=== PATIENT | male | born 1990 | race Caucasian/White ===

== ENCOUNTER 2018-08-26 00:50 | Emergency (ER) | payer OTHER, MEDICAID, SELFPAY ==
[2018-08-26 00:52] VITALS: BP 145/93; PULSE 100; RESP 12; TEMP 36.9; O2SAT 100; BMI 21.1
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
[2018-08-26] MEDS: ONDANSETRON 4 MG ODT PREPACK 1 BOTTLE MISC (01:19)
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
[2018-08-26] MEDS: KETOROLAC 60 MG/2 ML VIAL IM (01:51)
[2018-08-26 01:56] VITALS: BP 128/86; PULSE 89; RESP 16; O2SAT 100
== END 2018-08-26 02:14 | disposition home or self-care (01) ==
PROVIDERS: Emergency Provider Emergency Medicine
DX: S06.0X0A Concussion without loss of consciousness, initial encounter (principal); Y04.8XXA Assault by other bodily force, initial encounter
CPT/HCPCS: 70450; 96372; 99282; 99284; J1885

== ENCOUNTER 2018-09-23 15:10 | Emergency (ER) | payer OTHER, MEDICAID, SELFPAY ==
[2018-09-23] VITALS (14 sets, daily range): BP systolic 119–136; BP diastolic 62–99; PULSE 74–113; RESP 11–18; TEMP 37.2; O2SAT 98–100
[2018-09-23] MEDS: NALOXONE 0.4 MG/ML VIAL IV ×2 (15:27→15:33)
[2018-09-23] MEDS: SODIUM CHLORIDE 0.9% 1,000 ML 1000 ML IV ×2 (15:35→18:44)
[2018-09-23 15:48] LABS: Add Manual Diff / Slide Review NO; Basophils Absolute Auto 0 /uL (0-100); Eosinophils Absolute Auto 100 /uL (0-450); Eosinophils Percent Auto 2.4 % (2-4); Hematocrit 45.6 % (41-53); Hemoglobin 15.2 g/dL (13.5-17.5); Lymphocytes Absolute Auto 1000 /uL (1100-4500); Lymphocytes Percent Auto 22.1 % (25-40); Mean Corpuscular HGB Conc 33.4 % (30-36); Mean Corpuscular Hemoglobin 28.6 PG (26-34); Mean Corpuscular Volume 85.7 fL (80-100); Monocytes Absolute Auto 500 /uL (0-900); Monocytes Percent Auto 10.5 % (3-14); Neutrophils Absolute Auto 3000 /uL (1500-7000); Platelet Count 162 X10^3/uL (150-400); Red Blood Cell Count 5.32 X10^6/uL (4.5-5.9); Red Cell Distribution Width 14.6 % (11.6-14.8); White Blood Cell Count 4.6 X10^3/uL (4.5-11.0)
[2018-09-23 16:02] LABS: Acetaminophen < 10 ug/mL (10-30); Alanine Aminotransferase 41 IU/L (21-72); Albumin 4.7 g/dL (3.5-5.0); Albumin Globulin Ratio 1.5 (1.0-2.8); Alkaline Phosphatase 77 U/L (38-126); Aspartate Aminotransferase 38 IU/L (17-59); Bilirubin Unconjugated 0.8 mg/dL (0.0-1.1); Blood Urea Nitrogen 18 mg/dL (9-20); Calcium 9.8 mg/dL (8.4-10.2); Carbon Dioxide 28 mmol/L (22-32); Chloride 99 mmol/L (98-107); Estimated Glomerular Filt Rate > 60.0 mL/min (>60); Ethanol (ETOH) < 10 mg/dL; Globulin 3.2 g/dL (1.7-4.1); Glucose 83 mg/dL (70-100); Potassium 4.7 mmol/L (3.4-5.1); Sodium 136 mmol/L (137-145); Total Protein 7.9 g/dL (6.3-8.2)
[2018-09-23 16:13] LABS: HEMOLYSIS 68 (0-50); Salicylate < 1.0 mg/dL (<20)
[2018-09-23] MEDS: NALOXONE 1 MG/ML SYRINGE IV (16:31)
--- NOTE | 2018-09-23 16:37 | PC.NURSE ---
after 1mg narcan. no changes.
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
--- NOTE | 2018-09-23 17:55 | PC.NURSE ---
pt reports, unable to get rx for seboxone, pt had relapse, admitting using heroin 10 dollars worth, Iv at 11am today.
[2018-09-23 18:10] LABS: Urine Amphetamines Positive (Negative); Urine Barbiturates Negative (Negative); Urine Cocaine Negative (Negative); Urine MDMA Negative (Negative); Urine Methamphetamines Positive (Negative); Urine Morphine/Opi cutoff 2000 Positive (Negative); Urine Phencyclidine Negative (Negative); Urine Tetrahydrocannabinol Negative (Negative)
[2018-09-23 18:11] LABS: Urine Benzodiazepines Positive (Negative); Urine Methadone Negative (Negative); Urine Oxycodone Positive (Negative); Urine Tricyclic Antidepressant Negative (Negative)
[2018-09-24 03:35] VITALS: BP 117/83; PULSE 88; RESP 20; O2SAT 98
[2018-09-24 06:04] VITALS: BP 122/79; PULSE 76; RESP 18; TEMP 36.6; O2SAT 99
--- NOTE | 2018-09-24 06:07 | PC.NURSE ---
He was give a sandwich,juice and water before he left.he ate it all.
== END 2018-09-24 06:06 | disposition home or self-care (01) ==
PROVIDERS: Emergency Medicine; Emergency Provider Emergency Medicine
DX: F19.10 Other psychoactive substance abuse, uncomplicated (principal); T40.1X4A Poisoning by heroin, undetermined, initial encounter
CPT/HCPCS: 36591; 80053; 80076; 80305; 80320; 80329; 82962; 85025; 96361; 96374; 96375; 99284; 99285; 99291; G0480; J2310

== ENCOUNTER 2019-04-13 05:08 | Emergency (ER) | payer OTHER, MEDICAID, SELFPAY ==
[2019-04-13 05:15] VITALS: BP 156/99; PULSE 102; RESP 16; TEMP 36.8; O2SAT 100; BMI 21.7
--- NOTE | 2019-04-13 05:46 | ED_ITS ---
HPI - Skin/Abscess/Foreign Bdy General Chief complaint: Skin/Abscess/Foreign Body Stated complaint: Left knee redness sores poss spider bite Time Seen by Provider: 04/13/19 05:35 Source: patient Mode of arrival: Ambulatory History of Present Illness HPI narrative: Patient is a 28-year-old male who presents with left leg abscess. He has a history of IVDA he denies injecting in that area. He says it has been there for about 3 days and has progressively gotten more swollen and red and turned to a blackhead today. No fevers or chills. MD complaint: abscess/boil Onset (ago): day(s) (3) Tetanus up to date: yes Location: LLE Severity: mild Relieving factors: none Exacerbating factors: none Context: none Related Data Home Medications Medication Instructions Recorded Confirmed buprenorphine-naloxone [Suboxone] 1 linda SUBLINGUAL #0 07/13/17 Previous Rx's Medication Instructions Recorded triamcinolone acetonide 1 shelia TOPICAL BIDP PRN #30 gm 09/06/17 sulfamethoxazole-trimethoprim 1 tab PO BID 5 Days #10 tab 04/13/19 [Bactrim DS] Allergies Allergy/AdvReac Type Severity Reaction Status Date / Time PAPER TAPE Allergy Unknown RASH Uncoded 09/23/18 15:22 Review of Systems Review of Systems Narrative: GENERAL: Well-appearing, well-nourished and in no acute distress. CARDIOVASCULAR: peripheral pulses in tact, cap refill <2 sec RESPIRATORY: No respiratory distress, speaks in full sentences without difficu lty [ABDOMEN: Soft, nontender, no guarding or rebound] EXTREMITIES: Normal range of motion, no clubbing or edema. Neurovascularly intact NEUROLOGICAL: Cranial nerves II through XII grossly intact. Normal gait and speech. SKIN: See HPI Patient History Medical History Medical History IV drug abuse (Acute) Social History Social History Smoking Status: Current every day smoker substance use type: heroin, amphetamines, IV drugs and methamphetamine tobacco type: cigarettes alcohol intake frequency: 0-2 drinks per day Substance Use Type: marijuana, heroin and opiates Exam Initial Vital Signs Initial Vital Signs: Vital Signs Temperature 98.2 F 04/13/19 05:15 Pulse Rate 102 H 04/13/19 05:15 Respiratory Rate 16 04/13/19 05:15 Blood Pressure 156/99 H 04/13/19 05:15 Pulse Oximetry 100 04/13/19 05:15 GENERAL: Well-appearing, well-nourished and in no acute distress. CARDIOVASCULAR: peripheral pulses in tact, cap refill <2 sec RESPIRATORY: No respiratory distress, speaks in full sentences without difficulty EXTREMITIES: Normal range of motion, no clubbing or edema. Neurovascularly intact NEUROLOGICAL: Cranial nerves II through XII grossly intact. Normal gait and speech. SKIN: 1 cm x 2 cm fluctuation is dark head. Tender to touch mild surrounding erythema Procedures Abscess I/D Site: lower extremity Side (if applicable): left Local Anesthetic: lidocaine 1% Amount of anesthesia used (mL): 4 Technique: incised with #11 blade Amount of fluid expressed (mL): 2 Irrigation: No Packing used?: none Complications: pain and bleeding Course Orders Ordered: ED Orders 04/13/19 06:33 Wound Culture and Gram Stain Stat Discontinued Medications Ibuprofen (Advil) 800 mg PO NOW ONE Stop: 04/13/19 06:05 Last Admin: 04/13/19 06:11 Dose: 800 mg Documented by: KLAUDIA Lidocaine HCl (Xylocaine 1% (Pf)) 4 ml SUBCUT NOW ONE Stop: 04/13/19 05:51 Last Admin: 04/13/19 06:10 Dose: 4 ml Documented by: KLAUDIA Trimethoprim/Sulfamethoxazole (Bactrim Ds Prepack) 1 bottle MISC SEEINSTR ONE Stop: 04/13/19 06:05 Last Admin: 04/13/19 06:11 Dose: 1 bottle Documented by: KLAUDIA Vital Signs Vital signs: Vital Signs - 8 hr 04/13/19 05:15 04/13/19 06:19 Temperature 98.2 F Pulse Rate 102 H 101 H Respiratory Rate 16 16 Blood Pressure 156/99 H Blood Pressure [Right Arm] 128/91 H Pulse Oximetry 100 100 MDM - Skin/Abscess/Foreign Bdy MDM Narrative Medical decision making narrative: wound culture pending Discharge Plan Departure Patient Disposition: Home Clinical Impression: Abscess of left leg Discharge Date/Time: 04/13/19 06:24 Instructions: DI for Skin Abscess Activity Restrictions/Additional Instructions: *You have been diagnosed with skin abscess *What to do: This should start to improve with antibiotics. Keep clean and dry with soap and water. Use warm compresses to help continue to bring infection to surface. *Continue to take medications as directed Bactrim 1 tablet twice a day for 7 days *Follow up with your primary care provider in 2-3 days *Return to ER if you should have increasing redness, fever, swelling, pus or any new, worsening or concerning symptoms Prescriptions: New sulfamethoxazole-trimethoprim [Bactrim DS] 800-160 mg tablet 1 tab PO BID 5 Days Qty: 10 RF: 0 No Action buprenorphine-naloxone [Suboxone] 4 MG/1 MG film 1 linda Sublingual Qty: 0 RF: 0 triamcinolone acetonide 0.1 % ointment 1 shelia Topical BIDP PRNQty: 30 RF: 0 Referrals: [facility] [Outside]
[2019-04-13] MEDS: LIDOCAINE 1% (PF) 4 ML SUBCUT (06:10)
[2019-04-13] MEDS: TRIMETH/SULFA 160/800 PREPACK 1 BOTTLE MISC (06:11)
[2019-04-13] MEDS: IBUPROFEN 400 MG TABLET 800 MG PO (06:11)
[2019-04-13 06:19] VITALS: BP 128/91; PULSE 101; RESP 16; O2SAT 100
== END 2019-04-13 06:24 | disposition home or self-care (01) ==
PROVIDERS: Emergency Provider Emergency Medicine
DX: L02.416 Cutaneous abscess of left lower limb (principal)
CPT/HCPCS: 10060; 87070; 87077; 87147; 87186; 87205; 99282; 99283